=== PATIENT | female | born 1965 | race Caucasian/White ===

== ENCOUNTER → 2017-11-25 15:24 | Outpatient (CLI) | payer MEDICAID, SELFPAY ==
[2017-11-29 03:06] LABS: HSV 1 By PCR Negative (Negative)
[2017-11-29 10:34] LABS: HSV 2 By PCR Positive (Negative)
== END ==
PROVIDERS: Visit Provider Obstetrics & Gynecology
DX: Z11.3 Encounter for screening for infections with a predominantly sexual mode of transmission (principal)
CPT/HCPCS: 87529

== ENCOUNTER → 2018-02-14 14:49 | Outpatient (CLI) | payer MEDICAID, SELFPAY ==
--- NOTE | 2018-02-14 14:52 | RAD_ITS ---
STUDY: X-RAY - CERVICAL SPINE REASON FOR EXAM: Female, 52 years old. Shoulder pain. TECHNIQUE: 3 view(s) of the cervical spine were obtained. COMPARISON: None FINDINGS: Normal anterior atlantoaxial articulation. Normal odontoid process. Normal cervical lordosis. Normal vertebral bodies and endplates. Normal disc space heights. Normal visualized intervertebral neuroforamina. The soft tissue structures are unremarkable. RAD/Shoulder min 2 Views IMPRESSION: Normal x-ray examination of the visualized cervical spine. Electronically Signed: Timbo Blevins MD at 13:32 EDT Tel [phone], Service support ,
--- NOTE | 2018-02-14 14:52 | RAD_ITS ---
STUDY: X-RAY - CERVICAL SPINE REASON FOR EXAM: Female, 52 years old. Shoulder pain. TECHNIQUE: 6 view(s) of the cervical spine were obtained. COMPARISON: None FINDINGS: Normal anterior atlantoaxial articulation. Normal odontoid process. Normal cervical lordosis. Normal vertebral bodies and endplates. There is intervertebral disc space narrowing at C4-5, C5-6 and C6-7, most marked at C5-6. There is anterior bony neural foraminal encroachment at C5-6 and C6-7 bilaterally. There is diffuse uncovertebral and facet sclerosis. The soft tissue structures are unremarkable. RAD/Cerv Spine 4 or 5 Views IMPRESSION: Cervical spondylosis as described. Electronically Signed: Ronny Melendrez MD at 15:43 EDT , Service support ,
== END ==
PROVIDERS: Family Provider Family Medicine; PCP Family Medicine; Visit Provider Orthopaedic Surgery
DX: M25.511 Pain in right shoulder (principal)
CPT/HCPCS: 72050; 73030

== ENCOUNTER → 2018-05-23 07:25 | Outpatient (CLI) | payer MEDICAID, SELFPAY ==
--- NOTE | 2018-05-23 13:24 | NEURO ---
NCS and/or EMG Patient Report Ordering Doctor: Felicia Garrido DATE OF SERVICE: 05/23/18 This is a bilateral upper extremity nerve conduction study and a limited right upper extremity EMG performed on this 52-year-old female with a history of symptoms bilaterally affecting her arms and legs although somewhat worse on the right. She has had carpal tunnel repair bilaterally in 2002 but says that the current symptoms are somewhat different. She also has neck pain. She does note a history of diabetes but does not follow her blood sugars, she says approximately 6 months ago her last hemoglobin A1c was greater than 7. Bilateral upper extremity nerve conduction study is performed. The bilateral median motor distal latencies are mild to moderately prolonged with reduction of amplitude and conduction velocity symmetrically. The ulnar motor amplitudes are also bilaterally symmetrically diminished in a non-localizable fashion. Velocities are preserved and latencies are preserved. The ulnar and radial sensory responses are normal. The median and ulnar F-wave latencies bilaterally are normal. Right upper extremity needle electromyography was attempted however the patient could only tolerate one muscle. The first dorsal interosseous muscle was evaluated demonstrating normal insertional activity with absence of pathologic spontaneous activity and normal motor unit recruitment pattern and amplitude. Other muscles could not be evaluated due to patient discomfort. The patient deferred further testing. Impression: There is mild bilateral carpal tunnel however this is likely residual. It is suspected that the patient has polyneuropathy likely due to diabetes. Further evaluation including lower extremity nerve conduction studies should be performed and needle electromyography can also be performed if the patient able to tolerate.
== END ==
PROVIDERS: Referring Provider Orthopaedic Surgery; Visit Provider Orthopaedic Surgery
DX: G56.20 Lesion of ulnar nerve, unspecified upper limb (principal); M50.30 Other cervical disc degeneration, unspecified cervical region
CPT/HCPCS: 95885; 95911

== ENCOUNTER 2018-07-31 11:30 | Outpatient (RCR) | payer MEDICAID, SELFPAY ==
--- NOTE | 2018-07-11 16:11 | HP.PTEVAL_ITS ---
Patient's Visit Information PARIS CHAIREZ is a 52 year old F referred to Physical Therapy by YOANA Pennington with a diagnosis of R shoulder rot cuff impingement with biceps tendonitis. Date of Evaluation: 07/11/18 Physical Therapist: Daniele Rosales PT, - Visit Plan Frequency: 2-3x /Week Duration: 4-6 Weeks Plan: R shoulder strengthening (rot cuff), scap stab ex's, ube, US, and HEP - Subjective Subjective: Pt reports her R shoulder has been sore for months. Pt reports she was playing ball with kids when she reached up for a ball and experienced a pop. Pt reports she went to the ER that night secondary to pain, but the pain has never gotten better. Pt reports she has had xrays and EMG, which revealed no postive findings. No PMHx. Pt is R hand dominant. Pt notes sig sleep difficulty secondary to pain. Pt reports when she mows her lawn, her R UE goes numb. Pt reports she is not currently employed. Pt reports reaching behind her and overhead increases pain. 2/10 pain at rest, 10/10 at night time. - Pain R shoulder Pain Intensity (Out of 10): 2 Pain Intensity Range: 10 - Objective Neuro:B UE sensation is WNL to light touch. B bicepital reflex= 2/3. Palpation: Pt is very sore on the posterior and anterior aspects of R shoulder. No deformity. ROM: L shoulder flex= 160, abd= 165, ER= 70, IR WNL; R shoulder flex= 90, abd= 70, ER= 70, IR moderately limited. MMT: R shoulder 3/5 and painful with all testing. L shoulder 5/5. Special test: Pos speeds test - Goals Goal 1:: Decrease R shoulder pain x 50% to aid with sleep Goal Time Frame: 4-6 Weeks Goal 2:: Increase R shoulder strength x 1 grade to aid with IADL's Goal Time Frame: 4-6 Weeks Goal 3:: Increawse R shoulder flex and abd ROM x 40 degrees to aid with RTW Goal Time Frame: 4-6 Weeks Goal 4:: I with HEP Goal Time Frame: 4-6 Weeks - Rehabilitation Potential Physical Therapy Diagnosis: R shoulder pain, weakness, and limited ROM secondary to rot cuff impingment Rehabilitation Potential: Good - Anticipated Interventions Patient/Client Instruction: Educate patient on: Condition, Plan of Care For the Purpose of:: To improve self management Therapeutic Exercise to Include: Strength training, Balance training, Postural training, Active ROM, Scapular Strength/Stabilization For the Purpose of:: To decrease pain, To increase ROM, To improve muscle performance and motor function Cryotherapy (ice pack, ice massage): Yes Ultrasound (thermal/non thermal): Yes For the Purpose of:: To decrease pain Thank you for the opportunity to evaluate your patient. For Medicare and Medicare HMO plans, please review the plan of care and approve it. It will need to be FAXED BACK to us at [phone] for Medicare purposes. Please let me know if there are questions or concerns regarding this plan of care. Physician Signat ure: Date:
--- NOTE | 2018-09-12 14:16 | HP.PT.NRP ---
HP - Discharge Summary (1) - Patient Information PARIS CHAIREZ was seen in my office for initial evaluation on 07/11/18. The following Plan of Care was established for this patient: Initial Frequency: 2-3x /Week Initial Duration: 4-6 Weeks - Anticipated Interventions Patient/Client Instruction: Educate patient on: Condition, Plan of Care For the Purpose of:: To improve self management Therapeutic Exercise to Include: Strength training, Balance training, Postural training, Active ROM, Scapular Strength/Stabilization For the Purpose of:: To decrease pain, To increase ROM, To improve muscle performance and motor function Cryotherapy (ice pack, ice massage): Yes Ultrasound (thermal/non thermal): Yes For the Purpose of:: To decrease pain This patient was last seen in our office . Pertinent comments regarding their Physical therapy will appear below: Pt was treated for 6 PT visits for her R shoulder pain through the date of 07/31/18. Pt has not returned since that date and is therefore discontinued at this time. At this point I will be discontinuing this patient from physical therapy. I would be happy to see this patient again in the future if found appropriate by the physician. Thank you! Daniele Rosales, PT, ATC
== END 2018-07-31 19:00 | disposition home or self-care (01) ==
LOC: PT 11:30
PROVIDERS: Referring Provider Physician Assistant; Visit Provider Physician Assistant
DX: M75.101 Unspecified rotator cuff tear or rupture of right shoulder, not specified as traumatic (principal); M75.21 Bicipital tendinitis, right shoulder
CPT/HCPCS: 97110; 97161

== ENCOUNTER 2019-09-05 09:57 | Day surgery (SDC) | payer MEDICAID, SELFPAY ==
--- NOTE | 2019-08-18 09:58 | PCM.HP.BLA ---
History and Physical Date of Admission: 09/05/19 HISTORY AND PHYSICAL ? María Elena Guzman 1965 ? REFERRING PHYSICIAN: ??Jana Mcnulty MD ? CHIEF COMPLAINT: ??Hospital Follow Up ? HPI: María Elena is a 53 year old female with a complaint of right upper quadrant pain. ?The patient has had symptoms of right upper quadrant pain for 3?months. ?The symptoms have increased, over the past?2?weeks. ?The pain does??radiate to the back and shoulder. ?Food does??aggravate her?symptoms. ?Alleviating factors include: none. ? The patient was seen by?the emergency room physician?2?weeks?ago. ?María Elena underwent an ultrasound. ?These tests demonstrated cholelithiasis. The patient is referred for?evaluation and treatment. ? ? ? SIGNIFICANT MEDICAL PROBLEMS:? PAST MEDICAL HISTORY History reviewed. No pertinent past medical history. ? ? OPERATIONS:? PAST SURGICAL HISTORY History reviewed. No pertinent surgical history. ? ? CURRENT MEDICATIONS:? CURRENT MEDICATIONS Current Outpatient Medications Medication Sig Dispense Refill ? glipiZIDE (GLUCOTROL XL) 5 mg 24 hr tablet Take 5 mg by mouth once daily. ? ? ? Fenofibrate (LIPOFEN) 150 mg cap Take by mouth. ? ? ? cyanocobalamin (VITAMIN B-12) 100 mcg tab Take 100 mcg by mouth once daily. ? ? ? metFORMIN (GLUCOPHAGE) 500 mg tablet Take 500 mg by mouth daily with breakfast. ? ? ? Melatonin 5 mg cap Take by mouth. ? ? ? No current facility-administered medications for this visit.? ? ALLERGIES:?Hydrocodone-Acetaminophen; Codeine ? PERSONAL HISTORY:? SOCIAL HISTORY Social History ? Tobacco Use ? Smoking status: Not on file Substance Use Topics ? Alcohol use: Not on file ? Drug use: Not on file ? FAMILY HISTORY:? FAMILY HISTORY History reviewed. No pertinent family history. ? REVIEW OF SYMPTOMS: ??The review of systems data was entered by the nurse and reviewed by me ? Nursing Notes: Chris Maynard ?08/07/2019 ?4:32 PM ?Signed REVIEW OF SYSTEMS: ?General:???The patient denies fatigue, denies weight loss, denies weight gain, NOTES feeling hot, and NOTES feelings of cold. ?Eyes: ?The patient denies glaucoma, denies eye injury/surgery, wears glasses or contacts. ?Ear/Nose/Throat: ?The patient denies allergies, denies hayfever, denies ear infections, and denies bloody noses. ?Cardiovascular: ?The patient denies chest pain, denies heart disease, denies high blood pressure,denies cardiac stent, denies prior heart attack, denies irregular heart beat, denies high cholesterol, ?denies poor circulation, denies heart failure, other cardiac issues, denies claudication, denies cold feet, denies peripheral arterial stent. ?Respiratory: ?The patient denies tuberculosis, denies pneumonia, denies frequent cough, denies pulmonary embolism, denies shortness of breath, and denies coughing up blood. ?Gastrointestinal: ?The patient NOTES difficulty swallowing, NOTES acid reflux, denies ulcers, denies vomiting, denies jaundice/hepatitis, NOTES gallbladder problems, denies black or tarry stools, denies hemorrhoids, denies bleeding from rectum, denies diverticulitis, denies constipation, denies diarrhea, denies loss of stool control, and denies hernias. ?Kidney/Bladder: ?The patient NOTES kidney stones, denies urine infections, and denies bloody urine. ?Skin: ?The patient denies a history of skin cancer, denies bleeding/changing moles, and denies a history of skin rash. ?Neurologic: ?The patient denies a history of epilepsy/convulsions, denies headaches, denies head/spinal injuries, and denies stroke/TIA. ?Psychiatric: ?The patient denies psychiatric medications, denies depression, and denies voices, denies substance abuse. ?Endocrine: ?The patient denies thyroid disorders, denies diabetes, and denies hormonal problems. ?Hematologic: ?The patient denies a history of bruising, denies bleeding, and denies anemia, denies blood clots. ?Infections: ?The patient denies a history of measles and mumps, denies rheumatic fever, and denies sexually transmitted diseases. ?Musculoskeletal: ?The patient denies back pain/injury, NOTES back problems, denies sciatica, denies knee/foot trouble, NOTES arthritis, or denies gout. ? ? When was patient's last Mammogram screening? 2018 ? ?Last Colonoscopy: ?na ? Chris Maynard ? PHYSICAL EXAMINATION: ? General: ?The patient is 53 year old female, well nourished, well hydrated in no acute distress. ?The patient is oriented to time, place, and person. ? VITALS:??Blood pressure 132/70, pulse 105, temperature 36.1 ?C (97 ?F), temperature source Temporal, resp. rate 14, height 157.5 cm (5' 2), weight 70.8 kg (156 lb), SpO2 98 %.??Body mass index is 28.53 kg/m?.? ? HEENT: ?Normal cephalic, ataumatic, pupils are equally round, sclera are anicteric, mucous membranes are moist, oropharynx is clear. ?Neck has no masses, asymmetry or lymphadenopathy. ?Thyroid is unremarkable. ? Respiratory: ?Clear to auscultation and percussion. ?Normal respiratory excursion and pattern. ? Cardiac: ?Examination is regular rate and rhythm. ? Abdominal exam: ?Normoactive bowel sounds, Soft, tender in the right upper quadrant negative Garces's sign,??with no palpable masses. ?No hepatosplenomegaly. ?No palpable hernias. ? Rectal exam:?exam deferred ? Extremities: ?no clubbing, cyanosis or edema. ?No adenopathy. ? Other: ? LABORATORY VALUES: As Noted ? RADIOLOGIC STUDIES: ?As Noted Above ? Assessment ? IMPRESSION:?RUQ Pain, Cholelithiasis ? PLAN: ??My plan is to perform a laparoscopic cholecystectomy with intraoperative choleangiogram. ??The planned surgical procedure was discussed extensively with the patient. ?The risks, benefits, anticipated outcomes and possible complications were mentioned. ?My staff has also explained the procedure in understandable terms and the patient was given the option to take printed material concerning the planned procedure. ?The patient had the opportunity to ask questions concerning the planned procedure. ?The patient freely consents to the planned procedure. ? Planned Procedure:?LAPAROSCOPIC CHOLECYSTECTOMY WITH INTRAOPERATIVE CHOLANGIOGRAM - [id number] ? Planned antibiotic:?Ancef 2gm IVPB electrical & instrumentation supervisor to OR ? SCDs needed -?Yes ? Bank Teller Needed -?Yes ? Diagnoses:?(K80.20) Calculus of gallbladder without cholecystitis without obstruction ?(primary encounter diagnosis) ? Francisco Shah MD
[2019-09-05] VITALS (9 sets, daily range): BP systolic 115–149; BP diastolic 70–94; PULSE 56–85; RESP 16; TEMP 36.4–36.6; O2SAT 93–99; BMI 28.5
--- NOTE | 2019-09-05 10:02 | EKG12_ITS ---
Test Reason : PRE-OP Blood Pressure : / mmHG Vent. Rate : 083 BPM Atrial Rate : 083 BPM P-R Int : 150 ms QRS Dur : 082 ms QT Int : 360 ms P-R-T Axes : 048 049 070 degrees QTc Int : 423 ms Normal sinus rhythm Normal ECG When compared with ECG of 27-JAN-2017 13:39, No significant change was found Confirmed by GABY GARRIDO ([id number]), newspaper editor managing ELIEZER DELEON ([id number]) on 09/06/2019 8:47:58 AM Referred By: Francisco Shah Confirmed By:GABY GARRIDO
[2019-09-05 10:31] LABS: Bedside Glucose 210 mg/dL (70-110)
[2019-09-05 10:47] LABS: Hemoglobin A1c 7.1 % (4.2-6.3)
[2019-09-05] MEDS: Lactated Ringers 1,000 ML 100 ML IV (10:50)
--- NOTE | 2019-09-05 12:05 | GALL_PTH ---
PATIENT: PARIS CHAIREZ [place] [facility] [place][id number] AGE/SX: 53/F ROOM: RE09/05/[address]: Dr. Francisco Shah MD : 1965 BED: DIS: 09/05/2019 SPEC #: [id number] RECD: 09/05/19 14:41 STATUS: KRISTIAN REChema #: [id number] JAMES: 09/05/19 12:[address]: Francisco Shah DEPT: SURGICAL PATHOLOGY RECD BY: Cachorro Genao ENTERED: 09/06/19 10:25 SP TYPE: AMISH ELIZONDO DR: Dr. Jana Mcnulty MD Tissues: Gallbladder, NOS Procedures: Surgery Specimen Level III HEADER OPERATION: Laparoscopic cholecystectomy with IOC PRE-OP DIAGNOSIS: Calculus of gallbladder TISSUE SUBMITTED: Gallbladder MICROSCOPIC DIAGNOSIS Gallbladder, cholecystectomy: Chronic cholecystitis and cholelithiasis. SJ:jennifer 09/07/19 MICROSCOPIC DESCRIPTION Slides are reviewed. GROSS DESCRIPTION Received is one container labeled with the patient's name and designated gallbladder. The specimen consists of a gallbladder measuring 7.5 cm in length and 2.5 cm in diameter. The external surface is pink-campbell, smooth and glistening for the most part. Focally it is granular, hemorrhagic and contains cautery artifact. The gallbladder contains green-yellow mucoid bile and multiple, mulberry, light yellow stones measuring in aggregate 2 x 1.5 x 0.3 cm and 0.4 cm in greatest dimension. A stone is also noted in the cystic duct. The mucosa is bile-stained and without any mass lesions. The gallbladder wall measures up to 0.2 cm in thickness. Department Mgr sections from the gallbladder and the cystic duct are submitted in one cassette. / SJ:rg 09/06/19 TC:3 CPT: 85864
--- NOTE | 2019-09-05 12:05 | RAD_ITS ---
CLINICAL HISTORY: Female, 53 years old. Cholecystectomy PROCEDURE: CHOLANGIOGRAM - intraoperative FLUOROSCOPY TIME (if supplied): 11/seconds Placement of the catheter and the procedure were performed by: Dr. Shah Fluoroscopy was provided by medical technologist chief, who was present in the room time of the procedure. TECHNIQUE: () Intraoperative cholangiogram was performed in the anterior projection utilizing fluoroscopic guidance. Multiple fluoroscopic guided images were obtained during the exam demonstrating patency of the ducts without evidence for intraluminal stone or obstruction. For more complete information recommend correlation with operative notes. RAD/Cholangiogram/ O R,Initial IMPRESSION: Fluoroscopic guided intraoperative glandular Electronically Signed: Steve Leigh MD at 21:08 EST , Service support ,
[2019-09-05] MEDS: Cefazolin 2 GM in 0.9% Normal Saline 100 ML IV (12:43)
[2019-09-05] MEDS: Bupivacaine Mpf 0.5% 30 ML VIAL (13:59)
--- NOTE | 2019-09-05 14:05 | PCM.OPRPT ---
Report of Operation Date of Procedure: 09/05/19 Pre-Operative Diagnosis: symptomatic cholelithasis Post-Operative Diagnosis: symptomatic cholelithasis, Normal IOC (mirizzi's duct) Surgery/Procedure Performed:: laparoscopic cholecystectomy with intraoperative cholangiogram in home nanny: Jerry Rich Type of Anesthesia:: General Anesthesiologist: Monster Mccollum - ASA2 Specimen's removed: gallbladder Estimated Blood Loss (mL): 10 Fluids Replaced: 1100 Description of Procedure: The patient was brought to the operating suite. Sign in was performed verifying patient, site, position, SCIP antibiotic prophylaxis- 2 gm of Ancef and DVT prophylaxis with SCDs. Following induction of general anesthetic. The patient?s abdomen was prepped and draped in the usual fashion. Timeout was performed verifying patient, site, position. Local anesthetic was injected below the umbilicus. Incision made and dissection carried down to the umbilical root fascia. 2 stay sutures were placed. Incision made in the fascia, the peritoneum entered under direct visualization. A 10 mm Chirinos trocar was inserted and secured with the stay sutures. Pneumoperitoneum to 15 mmHg was insufflated. Visual inspection revealed normal visualized intraabdominal structures. 3 right upper quadrant 5 ports were placed in the standard position. The gallbladder was grasped retracted upward and outward. Dissection was carried out in Calot?s triangle. When a critical view of the neck of the gallbladder funneling of the cystic duct with no signs of aberrant ductal structures were seen, a clip was placed on the neck of the gallbladder cystic duct junction. A partial ductotomy was made. A Cholangiocath was inserted into the duct and secured with a clip. Intraoperative cholangiogram was performed demonstrating filling of the cystic duct filling the common bile duct and emptying into the duodenum without signs of obstruction area and the clip and catheter were removed. 2 clips placed on the cystic duct and the cystic duct divided. Dissection was continued until the cystic artery was clearly dissected and identified. The artery was then doubly clipped proximally singly clipped distally and divided. The gallbladder was then dissected free from the gallbladder fossa using electrocautery. The gallbladder was placed in an Endobag and removed through the umbilical port site. An 0 PDS [id number] suture was placed around the umbilical port site defect. Pneumoperitoneum was reestablished. The gallbladder fossa was checked for hemostasis. With good hemostasis, the area was irrigated and aspirated to clear. 5mm ports were removed under direct visualization with no signs of bleeding. Pneumoperitoneum was released. The Chirinos trocar was removed. The umbilical fascial suture was secured area did skin was closed with interrupted 4-0 Monocryl subcuticular sutures. Steri-Strips and bandages were applied. The patient was brought to recovery room in stable condition. - Admit VTE Documentation VTE Present on Admission: No VTE Mechan Device Prophylaxis: SCD's VTE Pharm Prophylaxis ordered?: No
[2019-09-05 14:56] LABS: Bedside Glucose 182 mg/dL (70-110)
[2019-09-05] MEDS: Acetaminophen 325 MG Tablet PO (15:56)
[2019-09-05] MEDS: oxyCODONE 5 MG Tablet PO (15:56)
--- NOTE | 2019-09-05 16:36 | DCINST_ITS ---
Discharge Diet: Light diet - advance as tolerated Discharge Activity: May Not Drive - for 2-3 days or while taking narcotic pain medications., - - Do not drive, work heavy equipment or sign legal documents for 24 hours. May shower in (days): 1 - with the bandage in place. Additional Activity Instructions:: Pain medication may cause nausea. You should typically eat light foods as you take your pain medications. Pain medication may also cause constipation. If this is a problem for you, please discuss with your doctor. Call your doctor if your incision/area has: Continuous Slow Oozing, Sudden Increased Bleeding, Increased Pain/ Swelling, Increased Redness, Foul Smelling Discharge Call your doctor if you observe: Fever of 101 or Higher Suture Line Care: Avoid Pulling/Pushing, Avoid Pinching/Bending Additional Dressing/Incision Instructions:: Leave operative bandaids on for 2 days. When you remove dressing, leave Steri-Strips on until your follow-up appointment, or until the Steri-Strips fall off on their own. Allergies/Adverse Reactions: Allergies codeine phosphate [From Tylenol-Codeine #3] Allergy (Verified 09/05/19 10:31) Other HALLUCINATIONS Medications to take at Discharge Cholecalciferol (VIT D3) [Vitamin D3] 1,000 unit PO DAILY 06/25/15 Magnesium 250 mg PO DAILY PRN 06/25/15 metFORMIN HCl [Glucophage] 500 mg PO BID 06/25/15 Ibuprofen [Motrin] 800 mg PO TID PRN PRN #30 tablet 07/03/15 Cyanocobalamin (Vitamin B-12) [Vitamin B12] 2,500 mcg PO DAILY 09/04/19 Fenofibrate [Lipofen] 150 mg PO DAILY 09/04/19 glipiZIDE [Glucotrol] 5 mg PO DAILY@0730 09/04/19 Oxycodone HCl/Acetaminophen [Percocet 5/325] 1 tab PO Q4H PRN PRN 5 Days #10 tab 09/05/19 The following prescriptions were given: Oxycodone HCl/Acetaminophen [Percocet 5/325] 1 tab PO Q4H PRN PRN 5 Days #10 tab PRN Reason: Pain Prescription Printed Primary Care Physician: Jana Mcnulty MD [Primary Care Provider] - Test Results: Test results from this visit will be discussed in further detail at your follow- up appointment, if applicable. Please Follow Up With: Francisco Shah MD - Please call [phone] to schedule an appointment. When: 7 days after your surgery
== END 2019-09-05 17:09 | disposition home or self-care (01) ==
LOC: SDC 09:58 → AC 09:59
PROVIDERS: Anesthesiology; Family Provider Student in an Organized Health Care Education/Training Program; PCP Student in an Organized Health Care Education/Training Program; Referring Provider Surgery; Visit Provider Surgery
PROC: (CPT 47610; principal; 2019-09-05 11:45)
DX: K80.10 Calculus of gallbladder with chronic cholecystitis without obstruction (principal); R13.10 Dysphagia, unspecified; K21.9 Gastro-esophageal reflux disease without esophagitis; E11.9 Type 2 diabetes mellitus without complications; E78.00 Pure hypercholesterolemia, unspecified; F41.9 Anxiety disorder, unspecified; Z78.0 Asymptomatic menopausal state; Z79.84 Long term (current) use of oral hypoglycemic drugs; Z79.899 Other long term (current) drug therapy; Z88.5 Allergy status to narcotic agent; Z87.442 Personal history of urinary calculi
CPT/HCPCS: 00790; 47563; 36415; 74300; 76000; 82962; 83036; 88304; 93005; J7120; J2405

== ENCOUNTER → 2022-11-15 | Outpatient (CLI) | payer MEDICAID, SELFPAY ==
[2022-11-23 11:08] LABS: HPV APTIMA, High Risk Negative (Negative)
== END | disposition home or self-care (01) ==
LOC: WOBLAB 14:25
PROVIDERS: PCP Student in an Organized Health Care Education/Training Program; Visit Provider Student in an Organized Health Care Education/Training Program
DX: Z12.4 Encounter for screening for malignant neoplasm of cervix (principal)
CPT/HCPCS: 87624; 88175; G0145

== ENCOUNTER → 2022-12-13 | Outpatient (CLI) | payer MEDICAID, SELFPAY ==
[2022-12-13 15:07] LABS: Absolute Lymphocyte Count 1.95 X10^3/uL (0.83-4.51); Absolute Neutrophil Count 3.8 X10^3/uL (2.0-7.7); Basophil# 0.04 X10^3/uL; Basophil% 0.6 % (0-1); Eosinophil# 0.22 X10^3/uL; Eosinophils% 3.4 % (0-5); Hematocrit 40.8 % (37-47); Hemoglobin 13.6 g/dL (12.0-15.0); Lymphocyte # 1.95 X10^3/ul (0.83-4.51); Lymphocyte % 29.8 % (19-41); Mean Corp Hgb Conc 33.3 g/dL (32-36); Mean Corpuscular Hgb 29.3 pg (27.0-32.0); Mean Corpuscular Volume 87.9 fL (81-99); Mean Platelet Vol. 9.1 fl (6.2-12.0); Monocyte# 0.52 X10^3/uL; NRBC Flagged by Analyzer 0 % (0-5); Neutrophil # 3.79 X10^3/uL (2.7-7.7); Neutrophil % 57.9 % (47-70); Platelet Count 304 K/mm3 (150-450); RBC Distribution Width CV 12.4 % (11.6-14.6); RBC Distribution Width SD 39.8 fl (35.1-43.9); Red Blood Count 4.64 M/mm3 (4.2-5.4); White Blood Count 6.5 K/mm3 (4.4-11.0)
[2022-12-13 15:20] LABS: Estradiol < 11.0 pg/mL; Follicle Stimulating Hormone 53.9 mIU/mL; Luteinizing Hormone 21.2 mIU/mL; Prolactin 2.4 ng/mL; T4 Free Direct 0.78 ng/dL (0.76-1.46); Thyroid Stim Hormone (TSH) 1.27 uIU/mL (0.358-3.74)
[2022-12-21 11:09] LABS: Testosterone, % Free 1.18 % (0.50-2.80); Testosterone, Free 0.11 ng/dL (0.10-0.85); Testosterone, Total 9 ng/dL (4-50)
== END | disposition home or self-care (01) ==
PROVIDERS: PCP Student in an Organized Health Care Education/Training Program; Visit Provider Nurse Practitioner Women's Health
DX: N93.9 Abnormal uterine and vaginal bleeding, unspecified (principal)
CPT/HCPCS: 36415; 82670; 83001; 83002; 84146; 84402; 84403; 84439; 84443; 85025

== ENCOUNTER → 2023-01-03 | Outpatient (CLI) | payer MEDICAID, SELFPAY ==
--- NOTE | 2023-01-03 | EMB_PTH ---
PATIENT: PARIS CHAIREZ LOC: [facility] U#:[id number] AGE/SX: 57/F ROOM: RE01/03/[address]: Dr. Donita Maynard DO : 1965 BED: DIS: 01/03/2023 SPEC #: [id number] RECD: 01/03/23 16:59 STATUS: KRISTIAN REChema #: [id number] JAMES: 01/03/23 00:[address]: Donita Maynard DEPT: SURGICAL PATHOLOGY RECD BY: Maicol Oconnor ENTERED: 01/04/23 07:11 SP TYPE: ENDOM BX/C MIKHAIL DR: Dr. Jana Mcnulty MD Tissues: Endometrium, NOS Procedures: Surgery Specimen Level IV HEADER OPERATION: Endometrial biopsy PRE-OP DIAGNOSIS: N93.9 TISSUE SUBMITTED: Endometrial biopsy MICROSCOPIC DIAGNOSIS Endometrial biopsy: Scant strips of benign endometrial epithelium and mucous. See comment. CRISTOFER:jennifer 01/05/2023 COMMENT The specimen predominantly consists of mucoid tissue. Clinical correlation and appropriate follow up are necessary. MICROSCOPIC DESCRIPTION Slides are reviewed. GROSS DESCRIPTION Received in fixative is one container labeled with the patient's name and designated endometrial biopsy. The specimen consists of multiple irregular fragments of light campbell soft tissue that in aggregate measure 2.0 x 1.5 x 0.1 cm. The specimen is totally submitted in one cassette. / AM:jennifer 01/04/2023 TC:4 CPT: 94293
== END | disposition home or self-care (01) ==
LOC: LABSPEC 16:08
PROVIDERS: PCP Student in an Organized Health Care Education/Training Program; Visit Provider Student in an Organized Health Care Education/Training Program
DX: N93.9 Abnormal uterine and vaginal bleeding, unspecified (principal)
CPT/HCPCS: 88305

== ENCOUNTER 2024-01-27 07:45 | Day surgery (SDC) | payer MEDICAID, SELFPAY ==
--- NOTE | 2024-01-27 08:00 | HP.PCM_ITS ---
HPI - General General Date of Service: 01/27/24 HPI Narrative PARIS CHAIREZ, is a 58 F who presents for a screening colonoscopy. Patient's last colonoscopy was in 2008 had a couple polyps done by Dr. Shah?told to come back in 5 years. Patient denies any family history of colon cancer. Patient's mom and sister did have polyps. Patient has bowel movements daily denies any blood. Patient denies any chronic abdominal pain/nausea/vomiting/reflux. PENDING SALE TO [facility] Medical History (Updated 01/27/24 @ 08:[address] Becky Dominguez MD) Wears partial dentures Wears glasses Post-menopausal Depression Anxiety Alcohol use Diabetes Arthritis Kidney stones High cholesterol Back pain Syncope History of IBS Non-smoker Sleep apnea Cardiology follow-up encounter Dyslipidemia Type 2 diabetes mellitus with hyperglycemia GE (obstructive sleep apnea) Chronic depressive disorder Hx of colonic polyps Home Medications ?Medication ?Instructions ?Recorded ?Last Taken ?Type Ibuprofen [Motrin] 800 mg PO TID PRN PRN Pain #30 tabs 07/03/15 Unknown Rx aspirin 81 mg tablet,delayed 81 mg PO DAILY 11/25/23 01/11/24 History release (Adult Low Dose Aspirin) atorvastatin 80 mg tablet 80 mg PO QHS 11/25/23 01/25/24 History ezetimibe 10 mg tablet 10 mg PO DAILY 11/25/23 01/25/24 History glipizide 5 mg tablet 10 mg PO BID 11/25/23 01/25/24 History metformin 500 mg tablet 1,000 mg PO BID 11/25/23 01/25/24 History sitagliptin phosphate 100 mg 100 mg PO DAILY 11/25/23 01/25/24 History tablet (Januvia) albuterol sulfate 90 mcg/actuation 2 puff inhalation Q4H PRN PRN 01/24/24 Unknown History aerosol inhaler wheezing dulaglutide 0.75 mg/0.5 mL 0.75 mg subcut QWEEK 01/24/24 Unknown History subcutaneous pen injector (Trulicity) Allergy/AdvReac Type Severity Reaction Status Date / Time codeine phosphate (From Allergy Other Verified 01/27/24 08:13 Tylenol-Codeine #3) Family History (Updated 11/25/23 @ 09:23 by Jessica Pelayo) Sister Colon polyps Mother Colon polyps Surgical History (Updated 11/25/23 @ 09:22 by Jessica Pelayo) Hx of section History of carpal tunnel release of both wrists Hx of tonsillectomy Hx of cholecystectomy Hx of colonoscopy Social History (Updated 11/25/23 @ 09:24 by Jessica Pelayo) Smoking Status: Never smoker details: Occasional alcohol substance use type: does not use Past Medical/Surgical History Planned Operation Planned Operative Procedure(s): COLONOSCOPY-OA S.O.S: No Previous Hospitalizations/Surgeries HX Hospitalizations: No HX of Surgeries: TONSILS C SECTION CARPAL TUNNEL Any Problems With Anesthesia: Yes (DIFFICULTY WAKING UP) You/Your Family Experience Fever (Hyperthermia) With Anes: No Cholinesterase deficiency: No Cardiovascular Hx Chest Pain within Last 2 months: No Hx of Irregular Heartbeat and/or Afib: No Hx Heart Attack: No Hx Congestive Heart Failure: No Hx Rheumatic Fever: No Hx Hypertension: No Hx Internal Defibrillator: No Hx Pacemaker: No Hx Cardiac Catheterization: No Hx Cardiac Surgery/Stents/Etc.: No Hx Stress Test: No Hx Pain in Legs when Walking/Leg Cramps: Yes Respiratory Chronic Cough: No HX of Shortness of Breath: No Hoarseness: No Hx Chronic Obstructive Pulmonary Disease (COPD): No Hx Asthma: No Hx Emphysema: No Hx Sleep Apnea: Yes (NON-COMPLIANT) CPAP: No BIPAP: No Hx Respiratory Tract Infection/Cold (presently): No Result (for STOP score): Positive Hx Smoking: No Smoking Status: Never smoker Gastrointestinal Controlled With Meds: No Hx Gastrointestinal Disorders: No Hx Gastrointestinal Bleed: No Hx Ulcer: No Hx Hiatal Hernia: No Difficulty Chewing/Swallowing: No Special diet followed at home: No Hx Unplanned Weight Loss of 20#: No HX Unplanned Weight Gain of 20#: No Neurological Hx Seizures: No HX Syncope/Blackout Spells/Unconsciousness: Yes (HX OF PASSING OUT CHILD) Hx Transient Ischemic Attacks (TIA): No Hx Multiple Sclerosis: No Hx Parkinson's Disease: No Hx Head/Neck Injury: No Hx Headaches: Yes Hx Back Injury/Pain: No Recent Onset of Speech Difficulty: No Restless Legs: Yes Does patient have nerve stimulator: No Blood Disorder Hx Leukemia: No Bleeding Tendencies: No Hx Deep Vein Thrombosis: No Hx High Cholesterol: Yes (ON MED) Blood Transmitted Disease: No Hx Hepatitis: No Hx Cirrhosis: No Hx Anemia: No Hx Blood Disorders: No Reproduction Is Patient Lactating: No Hx Hysterectomy: No Hx Tubal Ligation: No Are You Post Menopause: Yes Genitourinary Hx Renal Disease: Yes (KIDNEY STONES) Hx Dialysis: No Musculoskeletal Hx Arthritis: Yes (BACK, NECK) Hx Rheumatoid Arthritis: No Hx Gout: No Recent Onset of an Orthopedic Problem: No Endocrine Hx Diabetes: Yes (ON MED) Insulin: No Thyroid Disease: No Hx Steroid Therapy: No Psycho/Social Hx Substance Use: No Hx Alcohol Use: No Hx Anxiety: Yes (SOCIAL) Hx Depression: No Mental Illness: No Hx Dementia: No Miscellaneous Hx Cancer: No Recent Exposure to Contagious Disease: No Hx of C-Diff: No Any Loose Teeth: No (PARTIAL) Allergies codeine phosphate (From Tylenol-Codeine #3) Allergy (Verified 01/27/24 08:13) Other HALLUCINATIONS Discharge Is Pt Admitted From a Retirement, or a Mcfp: No After D/C, Where Do you Plan to Go: Return Home Physical Exam Const alert, oriented x3 and no apparent distress HEENT normocephalic and head/scalp atraumatic Resp normal respiratory effort Cardio regular rate GI soft to palpation and non-tender; Negative for non-distended Palpation: Negative for guarding Extremity no clubbing, cyanosis or edema Skin no rashes or lesions noted Neuro CN's II-XII intact bilaterally Psych mental status grossly normal Assessment & Plan Assessment/Plan (1) Encounter for screening for malignant neoplasm of colon: (2) Hx of colonic polyps: Surgery Risks - Colonoscopy I discussed with the patient the risks of the procedure: Yes Risks Include but are not Limited To: Risks include but are not limited to: Bleeding, perforation requiring further surgery, inability to complete colonoscopy requiring barium enema.
[2024-01-27 08:17] VITALS: BP 130/99; PULSE 85; RESP 18; TEMP 36.3; O2SAT 99; BMI 27.3
[2024-01-27] MEDS: Lactated Ringers 1,000 ML 15 ML IV (08:28)
[2024-01-27 08:49] LABS: Bedside Glucose 150 mg/dL (74-106)
[2024-01-27 09:28] VITALS: BP 126/91; BP 130/99; PULSE 101; RESP 16; TEMP 36.3; O2SAT 100
--- NOTE | 2024-01-27 09:28 | OP.COLON_ITS ---
Patient Name: María Elena Guzman Procedure Date: 01/27/2024 8:58 AM Date of : 1965 Age: 58 Procedure: Colonoscopy Indications: High risk colon cancer surveillance: Personal history of colonic polyps Providers: Becky Dominguez MD Medicines: Monitored Anesthesia Care Patient Profile: This is a 58 year old female. Last Colonoscopy: 2008. Complications: No immediate complications. Procedure: Pre-Anesthesia Assessment: - Prior to the procedure, a History and Physical was performed, and patient medications and allergies were reviewed. The patient's tolerance of previous anesthesia was also reviewed. The risks and benefits of the procedure and the sedation options and risks were discussed with the patient. All questions were answered, and informed consent was obtained. Prior Anticoagulants: The patient has taken no anticoagulant or antiplatelet agents. ASA Grade Assessment: Per anesthesia. After reviewing the risks and benefits, the patient was deemed in satisfactory condition to undergo the procedure. After I obtained informed consent, the scope was passed under direct vision. Throughout the procedure, the patient's blood pressure, pulse, and oxygen saturations were monitored continuously. The Colonoscope was introduced through the anus and advanced to the cecum, identified by the appendiceal orifice, ileocecal valve and palpation. The colonoscopy was performed without difficulty. The patient tolerated the procedure well. Scope In: 9:07:08 AM Scope Withdrawal Time 0 hours 10 minutes 1 second Scope Out: 9:21:40 AM Total Procedure Duration Time 0 hours 14 minutes 32 seconds Findings: Hemorrhoids were found on perianal exam. Non-bleeding internal hemorrhoids were found. The hemorrhoids were Grade I (internal hemorrhoids that do not prolapse). The entire examined colon appeared normal on direct and retroflexion views. Impression: - Hemorrhoids found on perianal exam. - Non-bleeding internal hemorrhoids. - The entire examined colon is normal on direct and retroflexion views. - No specimens collected. Recommendation: - Discharge patient to home. - Resume previous diet. - Continue present medications. - Repeat colonoscopy in 10 years for screening purposes. Procedure Code(s): --- Professional --- G0105, PT, Colorectal cancer screening; colonoscopy on individual at high risk Diagnosis Code(s): --- Professional --- Z86.010, Personal history of colonic polyps K64.0, First degree hemorrhoids CPT copyright 2021 [employer]. All rights reserved. The codes documented in this report are preliminary and upon remote medical coder review may be revised to meet current compliance requirements. MD Becky Anthony MD 01/27/2024 9:28:18 AM This report has been signed electronically. Number of Addenda: 0 Note Initiated On: 01/27/2024 8:58 AM
--- NOTE | 2024-01-27 09:28 | OP.CCLET_ITS ---
01/27/2024 Jana Mcnulty Md Re : Colonoscopy procedure for María Elena Guzman [place] This procedure was performed on Saturday, January 27, 2024. My impressions and recommendations are as follows: Impressions : - Hemorrhoids found on perianal exam. - Non-bleeding internal hemorrhoids. - The entire examined colon is normal on direct and retroflexion views. - No specimens collected. Recommendations : - Discharge patient to home. - Resume previous diet. - Continue present medications. - Repeat colonoscopy in 10 years for screening purposes. My findings are described in the full procedure note, which is enclosed. If I can be of further assistance, please feel free to contact me at Doctor phone number(s): , Work: . Sincerely, MD Becky Anthony MD 01/27/2024 9:28:18 AM This report has been signed electronically.
[2024-01-27 09:30] VITALS: BP 123/82; BP 130/99; PULSE 93; RESP 16; O2SAT 99
[2024-01-27 09:35] VITALS: BP 109/78; BP 130/99; PULSE 86; RESP 16; O2SAT 98
[2024-01-27 09:40] VITALS: BP 130/75; BP 130/99; PULSE 87; RESP 16; TEMP 36.3; O2SAT 98
[2024-01-27 10:07] VITALS: BP 130/99
== END 2024-01-27 10:08 | disposition home or self-care (01) ==
LOC: EN 07:45 → AC 07:47
PROVIDERS: PCP Student in an Organized Health Care Education/Training Program; Referring Provider Surgery; Visit Provider Surgery
PROC: 0DJD8ZZ Inspection of Lower Intestinal Tract, Via Natural or Artificial Opening Endoscopic (ICD-10-PCS; CPT 45378; principal; 2024-01-27 09:10)
DX: Z12.11 Encounter for screening for malignant neoplasm of colon (principal); E11.9 Type 2 diabetes mellitus without complications; Z86.010 Personal history of colon polyps; E78.00 Pure hypercholesterolemia, unspecified; Z79.84 Long term (current) use of oral hypoglycemic drugs; K64.0 First degree hemorrhoids; Z79.899 Other long term (current) drug therapy; Z79.82 Long term (current) use of aspirin
CPT/HCPCS: 45378; 82962; J7120; J2405